=== PATIENT | female | born 1985 | race Caucasian/White ===

== ENCOUNTER 2016-08-22 15:24 | Inpatient (IN) | payer BC, MEDICAID ==
[2016-08-22 16:45] LABS: Hematocrit 37 % (35-47); Hemoglobin 11.8 g/dl (12.0-16.0); Mean Corpuscular HGB Conc 32 g/dl (31-36); Mean Corpuscular Hemoglobin 25 pg (27-31); Mean Corpuscular Volume 80 fL (80-97); Mean Platelet Volume 9 um3 (7.4-10.4); Red Blood Count 4.66 10^6/ul (4.0-5.4); Red Cell Distribution Width 16 % (10.5-15); White Blood Count 5.5 10^3/ul (3.5-10.8)
[2016-08-22 16:46] LABS: Comments Flag Yes
[2016-08-22] MEDS ORDERED: ceFOXitin 2 GM IVPREMIX* 2 GM/50 ML BAG ONE (17:21)
[2016-08-22] MEDS ORDERED: Sodium Citrate/Citric Acid* 15 ML UDC ONE (17:21)
[2016-08-22] MEDS ORDERED: Morphine PF AMP (0.5MG/ML)* 5 MG/10 ML AMP ONE (17:29)
[2016-08-22] MEDS ORDERED: fentaNYL* 50 MCG/ML 2 ML VIAL (100 MCG VIAL) IV PRN (17:40)
[2016-08-22] MEDS ORDERED: Ketorolac INJ* 30 MG/ML 1 ML VIAL IV PRN (17:40)
[2016-08-22] MEDS ORDERED: Phenylephrine IV* 40 MCG/ML 10 ML SYRINGE ONE (18:34)
[2016-08-22] MEDS ORDERED: Ondansetron INJ* 2 MG/ML VIAL ONE (18:34)
[2016-08-22] MEDS ORDERED: OXYTOCIN* 10 UNITS/ML 1 ML VIAL ONE (18:34)
[2016-08-22] MEDS ORDERED: EPHEDrine (Pressors)* 50 MG/ML VIAL ONE (18:41)
[2016-08-22] MEDS ORDERED: Ondansetron INJ* 2 MG/ML VIAL IV PRN (19:16)
[2016-08-22] MEDS ORDERED: oxyCODONE/Acetamin 5/325 MG* TAB PO PRN (19:16)
[2016-08-22] MEDS ORDERED: Naloxone* 0.4 MG/ML 1 ML VIAL IV PRN (19:16)
[2016-08-22] MEDS ORDERED: DiMENhydriNATE IV* 50 MG/ML VIAL IV PUSH PRN (19:16)
[2016-08-22] MEDS ORDERED: Scopolamine 1.5 mg* PATCH TRANSDERM SCH (19:30)
[2016-08-22] MEDS: diPHENhydraMINE IV* 50 MG/ML 1 ml VIAL (BENADRYL) IV PRN (19:37)
[2016-08-22] MEDS ORDERED: Dibucaine 1% 28.35 GM TUBE PR PRN (19:43)
[2016-08-22] MEDS ORDERED: Witch Hazel PAD* JAR TOPICAL PRN (19:43)
[2016-08-22] MEDS ORDERED: Acetaminophen TAB* 325 MG PO PRN (19:43)
[2016-08-22] MEDS ORDERED: Glycerin ADULT SUPP PR PRN (19:43)
[2016-08-22] MEDS ORDERED: Oxytocin in LR* 20 UNITS/1,000 ML BAG IVPB SCH (20:00)
[2016-08-23] MEDS: Docusate CAP* 100 MG PO SCH ×4 (00:36→19:38)
[2016-08-23] MEDS: Simethicone CHEW TAB* 80 MG PO SCH ×5 (00:36→19:38)
[2016-08-23] MEDS: diPHENhydraMINE IV* 50 MG/ML 1 ml VIAL (BENADRYL) IV PRN (01:58)
[2016-08-23] MEDS: Ketorolac INJ* 30 MG/ML 1 ML VIAL IV PRN ×3 (01:58→16:30)
[2016-08-23] MEDS ORDERED: Naloxone* 2 MG in NS 0.9% 250 ML* 250 ML IV SCH (03:17)
[2016-08-23 08:48] LABS: Hematocrit 35 % (35-47); Hemoglobin 11.3 g/dl (12.0-16.0); Mean Corpuscular HGB Conc 32 g/dl (31-36); Mean Corpuscular Hemoglobin 26 pg (27-31); Mean Corpuscular Volume 80 fL (80-97); Mean Platelet Volume 9 um3 (7.4-10.4); Red Blood Count 4.42 10^6/ul (4.0-5.4); Red Cell Distribution Width 16 % (10.5-15); White Blood Count 10.4 10^3/ul (3.5-10.8)
[2016-08-23 08:53] LABS: Comments Flag Yes
[2016-08-23] MEDS: Ferrous Gluconate TAB* 324 MG TAB PO SCH ×2 (09:00→19:54)
--- NOTE | 2016-08-23 11:08 | OP ---
DATE OF OPERATION: 08/22/16 - ROOM #[id number] DATE OF : 89 SURGEON: Carrie Hernandez MD CAREER EDUCATION TEACHER: Dr. Hemphill ANESTHESIOLOGIST: Dr. Nolan ANESTHESIA: Spinal. PRE-OP DIAGNOSES: 36 weeks and 2 days twin intrauterine gestation, in labor. Prior section. Twins in the breech-breech presentation. Multiparity, desires permanent sterilization. POST-OP DIAGNOSES: 36 weeks and 2 days twin intrauterine gestation, in labor. Prior section. Twins in the breech-breech presentation. Multiparity, desires permanent sterilization. OPERATIVE PROCEDURE: Repeat low-flap transverse section via Pfannenstiel. Uterus closed in 2 layers. Bilateral fimbriectomies. FINDINGS: Viable twin gestation. Twin A was male in the breech presentation. He weighed 6 pounds 7 ounces, Apgars were 8 and 8. Twin B was female; she was in the transverse presentation after twin A was delivered. Her weight was 6 pounds 11 ounces, Apgars were 8 and 8. Normal-appearing uterus, normal- appearing fallopian tubes bilaterally. There were bilateral large ovaries. Each ovary was approximately 7 cm in size with multiple small cysts. The appearance is most consistent with bilateral theca lutein cysts. ESTIMATED BLOOD LOSS: 600 cc. SPECIMENS: 1. Placenta. 2. Bilateral fallopian tube fimbriated distal ends. DRAINS: Lima, 200 cc clear urine. COMPLICATIONS: None. COUNTS: Sponge, lap, and needle counts were correct x2. CONDITION: The patient was brought to recovery room, awake and in stable condition. DESCRIPTION OF PROCEDURE: The patient was brought to the operating room. When spinal anesthesia was found to be adequate, a Lima catheter was placed under sterile conditions. Time-out was performed. The spinal was tested with the Allis clamps and found to be adequate. A Pfannenstiel skin incision was made approximately 2 cm above the symphysis pubis. This was carried down to the underlying layer of fascia. The fascia was incised in the midline and the fascial incision was extended laterally. The fascia was grasped with the Sundeep clamps and the rectus muscle was dissected using sharp and blunt dissection. The rectus muscle was found to be in the midline. The peritoneum was identified, tented up, and entered. The peritoneal incision was extended superiorly and inferiorly with good visualization of the bladder. The bladder blade was inserted. The vesicouterine peritoneum was identified and a bladder flap was created. The bladder blade was re-inserted. A low-flap transverse incision was made on the uterus to the level of the membranes. The uterine incision was extended laterally bluntly. Twin A was delivered from the iris breech presentation. The cord was around his neck x1. The baby was vigorous. The cord was milked. The cord was clamped and cut and the was handed off to the waiting transitional care liaison, Dr. Woody. 's were 8 and 8. Twin B was initially felt to be in the transverse presentation. She was turned to vertex and delivered atraumatically. She was vigorous. The cord was milked. The cord was clamped and cut and she was handed off to the waiting transitional care liaison, Dr. Woody. Cord blood was sent for twin A and twin B. Twin A's cord was clamped with a yellow plastic cord clamp. The placenta was delivered and sent to pathology. The uterus was exteriorized. The uterus was cleared off all clots and debris, and the uterine incision was repaired using 0 Vicryl in a running locked fashion. A second layer of the same suture was used to imbricate and obtain excellent hemostasis. Attention was then turned to the patient's right fallopian tube, which was followed out to the fimbriated end. This was doubly clamped with the Ifeoma clamps to include all of the fimbria and at least the distal two-thirds of the fallopian tube. A free tie of 0 Vicryl was placed and then a suture ligature of 0 Vicryl. The portion of the fallopian tube with the fimbria was then excised with the Metzenbaum scissors. Excellent hemostasis was observed. Attention was then turned to the patient's left fallopian tube, which was followed out to the fimbriated end. The distal at least two-thirds was clamped with 2 Ifeoma clamps to include all of the fimbria. A free tie of 0 Vicryl was placed and then a suture ligature of 0 Vicryl was placed and the portion of fallopian tube with fimbria was excised with the Metzenbaum scissors. Both portions of fallopian tube were sent to pathology. Both tubal sites were examined and found to be hemostatic. The abdomen and pelvis were copiously irrigated with warm normal saline. The uterus was returned to the pelvis. The gutters were cleared of all clots and debris, and again both fallopian tube sites were visualized and found to be hemostatic. The uterine incision site was examined and found to be hemostatic. The peritoneum was closed using 3-0 Vicryl. The subfascial layer was examined and found to be hemostatic. The fascia was closed using 0 Vicryl. The subcutaneous tissue was irrigated. Any small bleeders were cauterized with the Bovie and the skin was closed with 4-0 Monocryl in a subcuticular fashion. Steri-Strips were applied. A pressure dressing was applied. The patient was brought to recovery room, awake and in stable condition. The Lima was draining clear urine. Sequential compression devices were activated throughout the surgery and will continued to be used in recovery and until the patient is ambulating regularly. The patient was told about the bilateral ovarian cysts. She said she recalled being told the same thing after her with her first daughter and that, to her knowledge, those had resolved. [id number]/[facility] #: [id number] DEEPIKA
[2016-08-23] MEDS: Ibuprofen TAB* 600 MG PO PRN (22:51)
[2016-08-24] MEDS: oxyCODONE/Acetamin 5/325 MG* TAB PO PRN ×4 (03:32→20:11)
[2016-08-24] MEDS: Ibuprofen TAB* 600 MG PO PRN ×3 (08:14→20:11)
[2016-08-24] MEDS: Simethicone CHEW TAB* 80 MG PO SCH ×4 (08:15→21:00)
[2016-08-24] MEDS: Docusate CAP* 100 MG PO SCH ×3 (08:15→20:11)
[2016-08-24] MEDS: Ferrous Gluconate TAB* 324 MG TAB PO SCH (09:00)
[2016-08-25] MEDS: Ibuprofen TAB* 600 MG PO PRN ×3 (02:42→16:39)
[2016-08-25] MEDS: oxyCODONE/Acetamin 5/325 MG* TAB PO PRN ×3 (02:42→12:22)
[2016-08-25 07:56] LABS: Hematocrit 33 % (35-47); Hemoglobin 10.4 g/dl (12.0-16.0); Mean Corpuscular HGB Conc 32 g/dl (31-36); Mean Corpuscular Hemoglobin 26 pg (27-31); Mean Corpuscular Volume 81 fL (80-97); Mean Platelet Volume 9 um3 (7.4-10.4); Red Blood Count 4.04 10^6/ul (4.0-5.4); Red Cell Distribution Width 16 % (10.5-15)
[2016-08-25 08:40] VITALS: BP 113/70
[2016-08-25] MEDS: Docusate CAP* 100 MG PO SCH ×2 (09:15→16:39)
[2016-08-25] MEDS: Simethicone CHEW TAB* 80 MG PO SCH ×3 (09:16→16:39)
--- NOTE | 2016-08-25 12:09 | PTEDU ---
Patient Name: HARPREET JETER HARPREET JETER selected video: Never Ever Shake a Baby to view on 08/25/2016 at 12:07:56 PM from [id number]
--- NOTE | 2016-08-25 12:35 | PTEDU ---
Patient Name: HARPREET JETER HARPREET JETER selected video: BBOB: Nurturing Your Gorgeous \T\Growing Baby by to will alston on 08/25/2016 at 12:34:17 PM from [id number]
== END 2016-08-25 18:21 | disposition home or self-care (01) | DRG 540 ==
LOC: MCHOBOUT 15:24 → MCHOB 17:10
PROVIDERS: ADMIT Obstetrics & Gynecology; ATTEND Obstetrics & Gynecology
PROC: 0UB70ZZ Excision of Bilateral Fallopian Tubes, Open Approach (ICD-10-PCS; 2016-08-22)
PROC: 10D00Z1 Extraction of Products of Conception, Low, Open Approach (ICD-10-PCS; principal; 2016-08-22 17:43)
DX: O69.81X1 Labor and delivery complicated by cord around neck, without compression, fetus 1 (principal); O99.12 Other diseases of the blood and blood-forming organs and certain disorders involving the immune mechanism complicating childbirth; D69.6 Thrombocytopenia, unspecified; O30.043 Twin pregnancy, dichorionic/diamniotic, third trimester; Z37.2 Twins, both liveborn; O34.219 Maternal care for unspecified type scar from previous cesarean delivery; O32.1XX1 Maternal care for breech presentation, fetus 1; O34.83 Maternal care for other abnormalities of pelvic organs, third trimester; N83.12 Corpus luteum cyst of left ovary; N83.11 Corpus luteum cyst of right ovary; Z3A.36 36 weeks gestation of pregnancy; Z30.2 Encounter for sterilization
CPT/HCPCS: 36415; 85025; 85027; 86850; 86900; 86901; 88302; 88307; A9270-GY; J0694; J1200; J1240; J1885; J2310; J2405; J2590